=== PATIENT | male | born 1965 | race African-American/Black ===

== ENCOUNTER 2023-08-19 14:14 | Emergency (ER) | payer MEDICAID ==
[~2023-08-19] VITALS: Ht 193 cm; Wt 104.0 kg
[~2023-08-19 14:14] MED LIST: AMLO5TAB88 MT; LEVO-65 MT; OMEP40CA20 MT; SUCR1TAB MT; TAMS-11 MT
[2023-08-19 14:32] VITALS: BP 117/78; PULSE 86; RESP 20; TEMP 97.7; O2SAT 97
[2023-08-19 17:16] LABS: EOSINOPHILS % 4.3 % (0.0-5.0); HEMATOCRIT. 38.6 % (42.0-52.0); HEMOGLOBIN. 12.4 g/dL (14.0-18.0); MEAN CORPUSCULAR HEMOGLOBIN 29.1 pg (28.0-32.0); MEAN CORPUSCULAR VOLUME 90.9 fL (80.0-94.0); MEAN PLATELET VOLUME 8.8 fl (7.4-10.4); MONOCYTES % 14.2 % (2.0-8.0); NEUTROPHILS % 44.5 % (40.0-76.0); PLATELET 258 x1000/uL (130-400); RED BLOOD CELL COUNT 4.24 mill/uL (4.7-6.1); RED CELL DISTRIBUTION WIDTH 19.2 % (11.6-14.6); WHITE BLOOD COUNT 6.4 x1000/uL (4.5-11.0)
[2023-08-19 17:20] LABS: INR 1.3; PARTIAL THROMBOPLASTIN TIME 29.3 sec (23.4-31.0); PROTHROMBIN TIME 13.5 sec (9.6-11.0)
[2023-08-19 17:23] LABS: CHLORIDE 112 mEq/L (98-107); INDEX HEMOLYSI 1 (1-3); INDEX ICTERIC 1 (1-4); INDEX LIPEMIC 1 (1-3); POTASSIUM 3.9 mEq/L (3.5-5.1); SODIUM 140 mEq/L (136-145)
[2023-08-19 17:38] LABS: ALANINE AMINOTRANSFERASE 26 IU/L (13-61); ALBUMIN 3.3 g/dL (3.4-5.0); ASPARTATE AMINOTRANSFERASE 37 IU/L (15-37); BILIRUBIN TOTAL 0.7 mg/dL (0.1-1.0); CALCIUM 9.4 mg/dL (8.5-10.1); CARBON DIOXIDE 25 mEq/L (21-32); CREATININE 1.1 mg/dL (0.6-1.3); GLUCOSE 95 mg/dL (70-105); NT PRO B-TYPE NATRIURETIC PEP 25 pg/mL (5-125); PROTEIN TOTAL 9.1 g/dL (6.0-8.3); TROPONIN I HIGH SENSITIVITY 20 ng/L (<78); UREA NITROGEN BLOOD 11 mg/dL (7-21)
[2023-08-19] MEDS ORDERED: FURO-151 MT (20:20)
== END 2023-08-19 20:46 | disposition home or self-care (01) ==
LOC: ER 14:14
DX: I87.8 Other specified disorders of veins (principal); I10 Essential (primary) hypertension; F12.90 Cannabis use, unspecified, uncomplicated
CPT/HCPCS: 80053; 83880; 85025; 85610; 85730; 84484; 36415; 93971; 71045; 93005; 99285; Z7610